=== PATIENT | male | born 1990 | race American Indian/Alaskan Native ===

== ENCOUNTER 2016-10-15 01:06 | Emergency (ER) | payer SELFPAY ==
[2016-10-15] MEDS ORDERED: TYLENOL ONE (02:12)
[2016-10-15] MEDS ORDERED: TYLENOL PO ONE (02:14)
[2016-10-15] MEDS ORDERED: FUL-GLO OP ONE ×2 (07:56→10:05)
[2016-10-15] MEDS ORDERED: TETRACAINE 0.5% OU ONE (07:56)
[2016-10-15 08:05] VITALS: BP 115/77
[2016-10-15] MEDS ORDERED: BSS ONE (08:09)
[2016-10-15] MEDS ORDERED: BSS OU ONE (08:11)
[2016-10-15] MEDS ORDERED: NORCO 5/325 PO ONE (08:37)
[2016-10-15] MEDS ORDERED: BOOSTRIX IM ONE (08:41)
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
== END 2016-10-15 11:18 | disposition home or self-care (01) ==
LOC: ED 01:06
DX: S05.01XA Injury of conjunctiva and corneal abrasion without foreign body, right eye, initial encounter (principal); F17.200 Nicotine dependence, unspecified, uncomplicated; X58.XXXA Exposure to other specified factors, initial encounter; Y93.89 Activity, other specified; Y99.8 Other external cause status; Y92.89 Other specified places as the place of occurrence of the external cause
CPT/HCPCS: 70480; 90471; 90715